=== PATIENT | female | born 1965 | race Caucasian/White ===

== ENCOUNTER → 2016-09-21 | Outpatient (CLI) | payer BC ==
--- NOTE | 2016-09-21 20:10 | Diagnostic Imaging Report ---
Bilateral screening mammogram The current study was also evaluated with a Computer Aided Detection (CAD) system. Indication: Screening. No current complaints stated on the questionnaire. COMPARISON: 01/28/16 FINDINGS: The breasts are composed of heterogeneously dense parenchyma which may decrease mammographic sensitivity. There are occasional benign-appearing calcifications. Allowing for technique and positional differences, no suspicious change is seen. IMPRESSION: Dense breasts with no definite change. ACR BI-RADS Category 2: Benign findings. Result letter will be mailed to the patient. Note: At least 10% of breast cancer is not imaged by mammography. Dictated by: Dictated on workstation # [id number]
== END ==
LOC: RAD 07:14
PROVIDERS: ATTEND Nurse Practitioner
DX: Z12.31 Encounter for screening mammogram for malignant neoplasm of breast (principal)
CPT/HCPCS: 77067

== ENCOUNTER → 2017-09-25 | Outpatient (CLI) | payer BC, OTHER ==
--- NOTE | 2017-09-25 12:29 | Diagnostic Imaging Report ---
INDICATION: Routine screening. COMPARISON: 09/21/2016 and 07/27/2015. TECHNIQUE: 2D and 3D bilateral screening mammography was performed with CAD. FINDINGS: Both breasts remain heterogeneously dense, limiting the sensitivity of mammography. The parenchymal pattern is stable. No mass or malignant appearing microcalcifications are seen. The axillae are unremarkable. IMPRESSION: No mammographic features suspicious for malignancy are identified. ACR BI-RADS Category 1: Negative. Result letter will be mailed to the patient. Note: At least 10% of breast cancer is not imaged by mammography. Dictated by: Dictated on workstation # [id number]
== END ==
LOC: RAD 08:15
PROVIDERS: ATTEND Nurse Practitioner
DX: Z12.31 Encounter for screening mammogram for malignant neoplasm of breast (principal)
CPT/HCPCS: 77067

== ENCOUNTER → 2018-10-17 | Outpatient (CLI) | payer BC, OTHER ==
--- NOTE | 2018-10-17 08:49 | Diagnostic Imaging Report ---
Indication: Routine screening. Comparison is made with prior mammogram 09/25/2017 and 09/21/2016. 2-D and 3-D bilateral screening mammography was performed with CAD. Both breasts are heterogeneously dense, limiting the sensitivity of mammography. There are circumscribed rounded densities in the retroareolar aspect of the left breast. These appear more prominent than prior exams maybe represent enlarging cysts. No malignant appearing microcalcification are seen. Axilla are unremarkable. Impression: BI-RADS zero Enlarging retroareolar densities on the left, likely a cyst. Further evaluation with ultrasound is recommended. BI-RADS category zero ACR BI-RADS Category 0: Incomplete. (Needs additional imaging evaluation). Result letter will be mailed to the patient. Note: At least 10% of breast cancer is not imaged by mammography. Dictated by: Dictated on workstation # [id number]
== END ==
LOC: RAD 07:37
PROVIDERS: ATTEND Nurse Practitioner
DX: Z01.419 Encounter for gynecological examination (general) (routine) without abnormal findings (principal); Z12.31 Encounter for screening mammogram for malignant neoplasm of breast
CPT/HCPCS: 77067

== ENCOUNTER → 2018-10-29 | Outpatient (CLI) | payer BC ==
--- NOTE | 2018-10-29 14:21 | Diagnostic Imaging Report ---
Indication: Abnormal recent screening mammogram showing enlarging density in the left retroareolar region. Study is performed for further evaluation. Correlation is made with screening mammogram from 10/17/2018. Sonographic interrogation of the retroareolar left breast was performed. There are 2 cysts identified in the retroareolar left breast. A cyst 12 o'clock location measures 22 mm x 8 mm x 19 mm. Cyst in the 6 o'clock retroareolar region measures 13 mm x 7 mm x 11 mm. These likely account for the mammographic densities. No solid lesions are seen. Impression: BI-RADS 2 Simple cyst retroareolar left breast, likely accounting for the mammographic densities. Patient may return to routine annual screening mammography. ACR BI-RADS Category 2: Benign findings. Dictated by: Dictated on workstation # [id number]
== END ==
LOC: RAD 12:20
PROVIDERS: ATTEND Nurse Practitioner
DX: N60.02 Solitary cyst of left breast (principal)
CPT/HCPCS: 76642

== ENCOUNTER → 2020-09-06 | Outpatient (CLI) | payer BC ==
--- NOTE | 2020-09-06 10:49 | Diagnostic Imaging Report ---
INDICATION: Routine screening. COMPARISON: 10/17/2018 and 09/25/2017. TECHNIQUE: 2D and 3D bilateral screening mammography was performed with CAD. FINDINGS: Both breasts remain heterogeneously dense, limiting the sensitivity of mammography. There is a circumscribed density in the posterior slightly outer left breast on the CC view at approximately the 3 o'clock location. This is new since the prior exam; however, the prior studies have shown cysts in the left breast at different locations. This is most likely a developing cyst as well. No spiculated mass or malignant appearing microcalcifications are seen. The axillae are unremarkable. IMPRESSION: Probable developing cyst in the slightly outer left breast 4 cm from the nipple. Further evaluation with ultrasound is recommended. No other significant abnormality is detected. ACR BI-RADS Category 0: Incomplete. (Needs additional imaging evaluation). Result letter will be mailed to the patient. Note: At least 10% of breast cancer is not imaged by mammography. Dictated by: Dictated on workstation # [id number]
== END ==
LOC: RAD 08:30
PROVIDERS: ATTEND Nurse Practitioner
DX: Z12.31 Encounter for screening mammogram for malignant neoplasm of breast (principal)
CPT/HCPCS: 77063; 77067

== ENCOUNTER → 2020-09-15 | Outpatient (CLI) | payer BC ==
--- NOTE | 2020-09-15 09:37 | Diagnostic Imaging Report ---
INDICATION: Left breast density. This study is performed for further evaluation. COMPARISON: Correlation is made with the recent mammogram from 09/06/2020 and the left breast ultrasound from 10/29/2018. FINDINGS: There is a cyst at the 12 o'clock location of the left breast measuring 1.1 x 0.6 x 0.9 cm. This has decreased in size when compared to the prior study from October 2018. There is also a cyst at the 3 o'clock location measuring 1.5 x 0.7 x 1.4 cm. This likely accounts for the mammographic density. No solid masses are detected. IMPRESSION: Simple cyst in the left breast, likely accounting for the mammographic density. The patient may return to routine annual screening mammography. ACR BI-RADS Category 2: Benign findings. Dictated by: Dictated on workstation # [id number]
== END ==
LOC: RAD 09:15
PROVIDERS: ATTEND Nurse Practitioner
DX: N60.02 Solitary cyst of left breast (principal)
CPT/HCPCS: 76642

== ENCOUNTER → 2021-10-19 | Outpatient (CLI) | payer BC ==
--- NOTE | 2021-10-19 11:01 | Diagnostic Imaging Report ---
INDICATION: Routine screening. COMPARISON: 09/06/2020 and 10/17/2018. TECHNIQUE: 2D and 3D bilateral screening mammography was performed with CAD. FINDINGS: Both breasts are heterogeneously dense, limiting the sensitivity of mammography. The parenchymal pattern is stable. No mass or malignant-appearing microcalcifications are seen. There are benign calcifications present. The axillae are unremarkable. IMPRESSION: No mammographic features suspicious for malignancy are identified. ACR BI-RADS Category 2: Benign findings. Result letter will be mailed to the patient. Note: At least 10% of breast cancer is not imaged by mammography. Dictated by: Dictated on workstation # [id number]
== END ==
LOC: RAD 08:00
PROVIDERS: ATTEND Surgery
DX: Z12.31 Encounter for screening mammogram for malignant neoplasm of breast (principal)
CPT/HCPCS: 77063; 77067

== ENCOUNTER → 2022-10-23 | Outpatient (CLI) | payer BC ==
--- NOTE | 2022-10-23 09:09 | Diagnostic Imaging Report ---
INDICATION: Routine screening. COMPARISON: 10/19/2021 and 09/06/2020. TECHNIQUE: 2D and 3D bilateral screening mammography was performed with CAD. FINDINGS: Both breasts are heterogeneously dense, limiting the sensitivity of mammography. The parenchymal pattern is stable. No mass or malignant-appearing microcalcifications are seen. The axillae are unremarkable. IMPRESSION: No mammographic features suspicious for malignancy are identified. ACR BI-RADS Category 1: Negative. Result letter will be mailed to the patient. Note: At least 10% of breast cancer is not imaged by mammography. Dictated by: Dictated on workstation # [id number]
== END ==
LOC: RAD 07:24
PROVIDERS: ATTEND Nurse Practitioner
DX: Z12.31 Encounter for screening mammogram for malignant neoplasm of breast (principal)
CPT/HCPCS: 77063; 77067